=== PATIENT | female | born 1955 | race African-American/Black ===

== ENCOUNTER 2019-02-19 22:35 | Inpatient (IN) | payer OTHER ==
[~2019-02-19] VITALS: Ht 154.9 cm; Wt 119.0 kg
[~2019-02-19 22:35] MED LIST: ACETAMINOPHEN325 M1 PO; ADVAIR HFA 1112 UNIT INH; AMLODIPINE BESYL5 MG PO; AMLODIPINE-BEN1 EACH PO; AMOX TR-K CLV1 EAC4 PO; AUGMENTIN PO; AZOR 10-20 MG1 EACH PO; BENAZEPRIL HCL5 MG PO; CEFTIN 250 MG250 MG PO; CEFTIN500 MG PO; COLACE100 MG PO; COUMADIN 2.5MG2.5 M1 PO; DUONEB 2.5-0.5 M3 ML INH; FLONASE 0.05%50 MCG NASAL; HYDROCHLOROTH12.5 MG PO; HYDROCHLOROTHIA25 M1 PO; KEFLEX750 MG PO; LANSOPRAZOLE30 MG PO; LASIX 20 MG TAB20 MG PO; LASIX 40 MG TAB40 M1 PO; NAPROSYN500 MG PO; NIFEDIPINE ER30 M1 PO; NORCO 5-325 TA1 EACH PO; PREDNISONE; PREDNISONE 10 M10 M1; PREDNISONE 10 M10 M1 PO; PREDNISONE10 MG PO; PREVACID30 MG; SINGULAIR 10 MG10 M1 PO; SYMBICORT160 MCG/4. INH
[2019-02-19 22:44] VITALS: BP 107/50
[2019-02-19 23:31] LABS: BE(vivo) 3.2 mmol/L (-2 to +3); HCO3 30.3 mmol/L (22.0-26.0); PCO2 61.4 mmHg (35.0-45.0); PO2 58.9 mmHg (80.0-100.0); sO2 87.4 % (92.0-98.0)
[2019-02-19 23:32] LABS: pH 7.311 (7.360-7.450)
[2019-02-20] VITALS (8 sets, daily range): BP systolic 97–133; BP diastolic 49–86
[2019-02-20 00:50] LABS: HEMATOCRIT 28.1 % (37.0-47.0); HEMOGLOBIN 8.4 gm/dL (12.0-15.0); MCH 26.9 pg (26.0-34.0); MCHC 29.8 g/dL (28.0-37.0); MCV 90.3 fL (80.0-100.0); RBC 3.11 mil/uL (4.20-5.00); RDW 20.1 % (10.5-14.5); WBC 13.1 thou/uL (4.0-11.0)
[2019-02-20 00:55] LABS: CALCIUM 8.9 mg/dL (8.5-10.1); CREATININE 7.2 mg/dL (0.6-1.0)
[2019-02-20 01:00] LABS: POTASSIUM 6.1 mmol/L (3.5-5.1)
--- NOTE | 2019-02-20 08:11 | EKG ---
[address] [email or web address] [address] ELECTROCARDIOGRAM REPORT Name: JANA WILSON Room #: 170-1 ADM IN M.R.#: [id number] Admission: 02/20/19 Attend Phys: Pebbles Salmeron MD Discharge: Date of : 51 Report #: [id number] THIS REPORT FOR: //name// [facility] ED Test Date: 2019-02-19 Test Time: 22:46:34 Pat Name: JANA WILSON Department: Room: 170 Gender: F Public Relations: VÍCTOR : 1955 Requested By: Ham Farias Order Number: [id number] MD: Julien Solorio Measurements Intervals [place] Rate: 110 P: 25 WA: 135 QRS: 46 QRSD: 85 T: 13 QT: 313 QTc: 424 Interpretive Statements Sinus tachycardia Early R-wave progression Compared to ECG 11/11/2014 02:23:38 No significant change was found Electronically Signed On 02-20-2019 8:11:13 CDT by Julien Solorio [email or web address] <ELECTRONICALLY SIGNED> By: Julien Solorio MD, [facility] 02/20/19 0811 [id number] 45 Julien Solorio MD, FACC /EPI
--- NOTE | 2019-02-20 09:22 | NUR ---
PT. RECEIVING HEMODIALYSIS AT THIS TIME.
--- NOTE | 2019-02-20 10:06 | NUR ---
LIAISON PLANNER ARRIVED TO PROVIDE DIALYSIS TO PATIENT. ROOM ASSIGNED IN ICU. PT. TO RECEIVE HD IN ASSIGNED ROOM.
[2019-02-20 10:16] LABS: BE(vivo) 3.8 mmol/L (-2 to +3); HCO3 30.3 mmol/L (22.0-26.0); PCO2 57.5 mmHg (35.0-45.0); sO2 86.2 % (92.0-98.0)
[2019-02-20 10:17] LABS: PO2 55.1 mmHg (80.0-100.0)
[2019-02-20] MEDS ORDERED: ZYLOPRIM100 MG PO (11:42)
[2019-02-20] MEDS ORDERED: ASA81BEC PO (11:43)
[2019-02-20] MEDS ORDERED: RENVELA800 MG PO (11:43)
[2019-02-20] MEDS ORDERED: POLYETHYLENE GL17 GM PO (11:45)
[2019-02-20] MEDS ORDERED: LIPITOR 40 MG T40 M1 PO (11:45)
[2019-02-20] MEDS ORDERED: LOPRESSOR25 PO (11:46)
[2019-02-20] MEDS ORDERED: CALCITRIOL0.5 MCG PO (11:47)
--- NOTE | 2019-02-20 20:12 | NUR ---
PT ADMITTED TO ICU OVERFLOW CC TELE STATUS AT 1030. PT REPORTS THAT SHE HAS BEEN HAVING SEVERE SOA WITH MOVEMENT SINCE LAST NIGHT. CT CHEST PE PROTOCOL ORDERED BUT NO IV ACCESS ON ARRIVAL FROM ER. DIALYSIS STARTED ON ARRIVAL FROM ER AND COMPLETED THIS AFTERNOON. PT TO CT SCAN FOLLOWING. WHILE IN CT SCAN RIGHT AC #20 G INFILTRATED WITH CONTRAST DYE. ICE PACK APPLIED TO SITE. DR BURGOS NOTIFIED THAT UNABLE TO COMPLETE CT SCAN BC OF RIGHT ARM SWELLING POST INFILTRATE AND UNABLE TO USE LEFT ARM FOR IV PLACEMENT DUE TO AV FISTULA. HE PLANS TO RE EVAL NEED FOR CT IN AM AND HOLD OFF FOR TONIGHT. TO START ON SQ HEPARIN.
[2019-02-21 00:11] VITALS: BP 104/41
[2019-02-21 04:02] VITALS: BP 99/46
[2019-02-21 07:30] VITALS: BP 100/53
[2019-02-21 09:05] VITALS: BP 101/53
[2019-02-21 10:20] LABS: HEMATOCRIT 24.9 % (37.0-47.0); HEMOGLOBIN 7.5 gm/dL (12.0-15.0); MCH 27.2 pg (26.0-34.0); MCHC 29.9 g/dL (28.0-37.0); MCV 90.9 fL (80.0-100.0); RBC 2.74 mil/uL (4.20-5.00); RDW 20.2 % (10.5-14.5); WBC 11.8 thou/uL (4.0-11.0)
--- NOTE | 2019-02-21 11:32 | NUR ---
VASCULAR ACCESS NURSE CONSULTED TO ATTEMPT BLOOD DRAW AND PIV FOR CT. THIS PATIENT HAS A NEW LEFT ARM FISTUAL. RIGHT ARM IS THE ONLY OPTION. RECENT CONTRAST INFILTRATION NOTED TO MEDIAL RIGHT AC. VERY TENDER TO TOUCH. A PIV ATTEMPTED TO RIGHT LATERAL AC SUCCESSFUL BUT ONLY ABLE TO GET PARTIAL BLOOD DRAW FOR LABS. THIS PATIENT HAS A RIGHT CHEST DIALYSIS LINE, LEFT ARM NEW FISTULA.. REFUSING TO BE STUCK AGAIN AND ALSO REFUSING TO DICUSS CENTRAL LINE OPTION. THIS PATIENT IS NOT A CANIDATE FOR MIDLINE OR PICC OPTION DUE TO THE RENAL HISTORY AND THE NEED TO PRESERVE THE RIGHT UPPER ARM VESSELS FOR FUTURE FISTULAS PER HOSPITAL POLICY. FELIX [place]Y UPDATED
[2019-02-21 12:00] VITALS: BP 95/48
--- NOTE | 2019-02-21 12:30 | NUR ---
Pt transferred to room 204 via wheelchair. Report called to receiving nurse Marizol prior to transfer. Personal belongings packed by ANNA Matute (Clothes, cell phone, cell phone senior oracle dba) and pt has her glasses. Assisted to bedside chair and oriented to new room by receiving staff. O2 at 4 liters nasal cannula at time of the transfer.
--- NOTE | 2019-02-21 14:11 | NUR ---
CONSULT [id number] COMPLETED. Patient was just transferred to . She was comfortable and in good spirts. We did life review and discussed her phogn background. We concluded in prayer.
--- NOTE | 2019-02-21 18:20 | NUR ---
PT WAS TRANSFERRED FROM ICU OVERFLOW EARLIER TODAY, PT HAS BEEN TO [facility] SEVERAL TIMES WITH 1 ASSIST. PT EDUCATED EXTENSIVELY ON DIALYSIS DIET, FISTULA AND MEDICATIONS. PT VQ SCAN CAME BACK NEGATIVE AND PT UNDER THE IMPRESSION SHE WOULD BE ABLE TO GO HOME, PAGED DR BURGOS, HE STATES THE PT IS TO STAY TODAY, POSSIBLE DISCHARGE TOMORROW. PROGRESSING TOWARDS GOALS WELL.
[2019-02-21 20:06] VITALS: BP 97/48
[2019-02-22 01:00] VITALS: BP 106/56
[2019-02-22 02:05] LABS: HEPATITIS B SURFACE AG Negative (Negative)
[2019-02-22 04:34] VITALS: BP 103/54
--- NOTE | 2019-02-22 04:46 | NUR ---
ASSUMED PT CARE AT 1900. PT IS SITTING IN CHAIR. NO FAMILY AT BEDSIDE. DENIES ANY PAIN. PT IS ON OXYGEN. NO SIGN OF DISTRESS NOTED. ASSESSMENT COMPLETED AND DOCUMENTED. FALL PRECAUTION IN PLACE. SCHEDULED MEDS ADMINISTERED TO PT. PT TOLERATED PO INTAKE. NO SIGN OF DISTRESS NOTED. PT STARTED TO DESAT AFTER CIPAP WAS TAKEN OFF. PT WAS PLACED ON HIGH FLOW OXYGEN.
[2019-02-22 05:08] LABS: ABSOLUTE NEUTROPHILS 6.8 thou/uL (1.4-8.2); BASOPHILS 0.6 % (0.0-2.0); HEMATOCRIT 24.7 % (37.0-47.0); HEMOGLOBIN 7.5 gm/dL (12.0-15.0); LYMPHOCYTES 23.4 % (24.0-44.0); MCH 27.3 pg (26.0-34.0); MCHC 30.4 g/dL (28.0-37.0); MCV 89.9 fL (80.0-100.0); MONOCYTES 7.4 % (1.0-8.0); PLATELET COUNT 199 thou/uL (150-400); POLYS 67.6 % (36.0-66.0); RBC 2.75 mil/uL (4.20-5.00); RDW 20.6 % (10.5-14.5); WBC 10.1 thou/uL (4.0-11.0)
[2019-02-22 05:09] LABS: CALCIUM 8.9 mg/dL (8.5-10.1); CREATININE 7.2 mg/dL (0.6-1.0); POTASSIUM 4.5 mmol/L (3.5-5.1)
[2019-02-22] MEDS ORDERED: MIDODRINE HCL 55 M1 PO (08:21)
[2019-02-22] MEDS ORDERED: PEPCID20 MG PO (08:22)
[2019-02-22 09:22] VITALS: BP 104/44
--- NOTE | 2019-02-22 16:43 | NUR ---
PT CARE ASSUMED APPROX 0700. ASSESSMENT CHARTED. PT DENIES PAIN AND SOA. VSS. UP WITH 1 MOD ASSIST. PT WAS TO DISCHARGE BUT AFTER CONTACTING OUR ELEMENTARY SCHOOL COUNSELOR TO LEARN THAT RECEIVING FACILITY NEEDS TO ACCEPT PT THROUGH ADMISSION DEPT. THEIR ADMISSIONS DEPT IS CLOSED ON SUNDAYS SO POC UPDATED TO DISCHARGE PT TOMORROW. DR BURGOS IS AWARE. HE REQUESTED THAT PT BE DIALYZED FIRST TOMORROW MORNING. THIS NURSE CONTACTED LAP MACHINE OPERATOR HD NURSE TO MAKE REQUEST KNOWN. FAMILY AND PT GIVEN POC AND CLINICAL UPDATES THIS SHIFT. ALL DENY QUESTIONS AND CONCERNS REGARDING POC. PT TO CHAIR MOST OF SHIFT. NO DISTRESS NOTED.
[2019-02-22 17:34] VITALS: BP 97/51
[2019-02-22 19:27] VITALS: BP 106/55
[2019-02-23 04:08] VITALS: BP 102/46
--- NOTE | 2019-02-23 08:19 | NUR ---
ASSESSMENTS CHARTED, MEDS GIVEN CHARTED. HAD LONG DISCUSSION OF DIET RESTRICTIONS INVOLVED IN A RENAL DIET. PATIENT HAS A GOOD BEGINNING ON UNDERSTANDING. ON 4 LITERS OXYGEN DURNING SHIFT. USED CPAP DURING NIGHT. PATIENT PLANNING ON GETTING DISCHARGED TODAY AFTER DIALYSIS.
[2019-02-23 12:31] VITALS: BP 122/64
[2019-02-23 12:32] VITALS: BP 134/64
--- NOTE | 2019-02-23 13:22 | NUR ---
PT DISCHARGING TODAY TO [facility] FAXED DC ORDERS/SUMMARY TO FACILITY SPOKE WITH MALTAHI IN ADM SHE RECEIVED DC ORDERS AND ARRANGED TRANSPORT BY [facility] FOR [phone]. NOTIFIED PT'S FAMILY (ROBERT) OF DC AND TIME OF TRANSPORT. UNIT NOTIFIED AND CHART COPY PER US. RN TO CALL REPORT TO [phone].
--- NOTE | 2019-02-23 15:20 | NUR ---
ASSUMMED PT CARE AT APPROXIMATELY 0700. PT A&O X4. FALL PRECAUTIONS IN PLACE. ASSESSMENT CHARTED. PT DENIES HAVING SOB. PT DENIES HAVING CHEST PAIN. PT DENIES ACUTE PAIN. PT STATED SHE WAS NAUSEATED. PT RECEIVED ANTI-EMETIC. PT STATED HER NAUSEA WAS RELEIVED. PT RECEIVED DIALYSIS TODAY. COBOL APPLICATION DEVELOPER STATED THEY REMOVED 1 L. Q2 TURNS. PT DISCHARGING BACK TO [facility]. RN AT [facility] CALLED AND GIVEN VERBAL REPORT. RN DENIED HAVING FURTHER QUESTIONS. [facility] TRANSPORT TOOK PT OFF UNIT AT APPROXIMATELY 1515. IV'S DC. TELE DC. PT DENIES HAVING FURTHER CONCERNS. BELONGINGS SENT C PT. PT REPORT PACKET SENT C PT.
--- NOTE | 2019-02-24 08:39 | HC ---
[facility] [place] [address] CONSULTATION Name: JANA WILSON Room #: 204-P [facility] IN M.R.#: [id number] Admission: 02/20/19 Attend Phys: Pebbles Salmeron MD Discharge: 02/23/19 Date of : 51 Report #: [id number] THIS REPORT FOR: //name// CC: Pebbles Salmeron DATE OF SERVICE: 02/20/2019 REASON FOR CONSULTATION: End-stage renal disease. REASON FOR PRESENTATION: Shortness of breath. HISTORY OF PRESENT ILLNESS: This is a 63-year-old who resides in a nursing facility. She is known to have severe COPD, obstructive sleep apnea. She tells me that she was at [facility] back in December of this year. She had kidney failure and was initiated on dialysis. She does not recall the cause for her renal disease. She has longstanding hypertension. She is also known to have pulmonary hypertension with coronary artery disease. She is not really sure about her heart condition and whether she had CHF or not. Last cardiac echo was done here in our facility back in 2014 and that showed an ejection fraction of 55-60%. She had mild aortic stenosis at that time. She also had mild mitral regurgitation. She had some diastolic heart failure. Pulmonary artery pressure back then was 52; however, this was way back from 2014. She had a fall at her facility yesterday and was evaluated earlier in the day at [facility] and was sent back to her facility. She presented with shortness of breath and was found to be hyperkalemic. She is supposed to be dialyzing today. She has mild leukocytosis on her presentation with a mildly elevated troponin. She tells me that she dialyzes 3-1/2 hours and had some issues with the fluid removal. PAST MEDICAL HISTORY: 1. Hypertension. 2. Morbid obesity. 3. Obstructive sleep apnea. 4. Pulmonary hypertension. 5. Coronary artery disease. 6. Hypotension. 7. Leukocytosis. 8. Hyperkalemia. PAST SURGICAL HISTORY: 1. Hysterectomy. 2. Tubal ligation. 3. PE back in 2009. 4. COPD. 5. Obstructive sleep apnea. 6. Recent left AV fistula. [facility] [address] [place] [address] CONSULTATION Name: JANA WILSON Room #: 204-P [facility] IN ..#: [id number] Admission: 02/20/19 Attend Phys: Pebbles Salmeron MD Discharge: 02/23/19 Date of : 51 Report #: [id number] 7. Right IJ tunneled catheter placement. MEDICATIONS: 1. Hydrochlorothiazide. 2. Benazepril. 3. Nifedipine. 4. DuoNeb. 5. Fluticasone. ALLERGIES: CIPRO, CODEINE, ERYTHROMYCIN. SOCIAL HISTORY: Denies any nursing facility. Denies drug or alcohol abuse. She used to work for the [employer] service. REVIEW OF SYSTEMS: GENERAL: Significant for weakness, but no fever or chills. CARDIOVASCULAR: No chest pain or palpitations. PULMONARY: As per the history of present illness. GASTROINTESTINAL: No nausea or vomiting. MUSCULOSKELETAL: Significant back and neck pain post fall. SKIN: No rash or ulcerations. NEUROLOGICAL: Significant for weakness. PHYSICAL EXAMINATION: GENERAL: She is alert, oriented, in no apparent distress. VITAL SIGNS: Blood pressure is 98/55. HEAD AND NECK: No jugular venous distention. Right IJ catheter present. CHEST: Minimal crackles. CARDIOVASCULAR: Distant with no rub detected. ABDOMEN: Soft, nontender. LOWER EXTREMITIES: +1 edema. IMPRESSION AND PLAN: 1. End-stage renal disease. 2. Hypotension. 3. Leukocytosis. 4. Chronic obstructive pulmonary disease. 5. Right-sided heart failure. 6. Obstructive sleep apnea. 7. Hyperkalemia. 8. We will arrange for the patient to have her usual hemodialysis. Hypotension seems to be an issue and we will start the patient on midodrine. She does have significant fluid overload because of failure to obtain significant ultrafiltration given her hypotension and [place] [address] CONSULTATION Name: JANA WILSON Room #: 204-P [facility] IN M.R.#: [id number] Admission: 02/20/19 Attend Phys: Pebbles Salmeron MD Discharge: 02/23/19 Date of : 51 Report #: [id number] 9. Management of her hyperkalemia with a low K bath. 10. Management of her other comorbid conditions per the primary team. <ELECTRONICALLY SIGNED> By: Urvashi Cha MD 02/24/1939 4 46 Urvashi Cha MD /nt
== END 2019-02-23 15:14 | DRG 189 ==
LOC: ER 22:35 → 2N 02-20 01:31 → EROBS 02-20 01:31 → ICU 02-20 10:09 → 2N 02-21 12:36
PROVIDERS: Emergency Medicine; Hospitalist; Nurse Practitioner Adult Health; ADMIT Internal Medicine
PROC: 5A09357 Assistance with Respiratory Ventilation, Less than 24 Consecutive Hours, Continuous Positive Airway Pressure (ICD-10-PCS; principal; 2019-02-20)
PROC: 5A09357 Assistance with Respiratory Ventilation, Less than 24 Consecutive Hours, Continuous Positive Airway Pressure (ICD-10-PCS; 2019-02-22)
DX: J96.01 Acute respiratory failure with hypoxia (principal); N18.6 End stage renal disease; I13.2 Hypertensive heart and chronic kidney disease with heart failure and with stage 5 chronic kidney disease, or end stage renal disease; Z68.42 Body mass index [BMI] 45.0-49.9, adult; E87.5 Hyperkalemia; I27.20 Pulmonary hypertension, unspecified; J44.9 Chronic obstructive pulmonary disease, unspecified; I95.9 Hypotension, unspecified; I27.81 Cor pulmonale (chronic); I50.810 Right heart failure, unspecified; D63.8 Anemia in other chronic diseases classified elsewhere; D72.829 Elevated white blood cell count, unspecified; E66.01 Morbid (severe) obesity due to excess calories; I25.10 Atherosclerotic heart disease of native coronary artery without angina pectoris; G47.33 Obstructive sleep apnea (adult) (pediatric); K21.9 Gastro-esophageal reflux disease without esophagitis; Z99.2 Dependence on renal dialysis; Z86.711 Personal history of pulmonary embolism; Z88.5 Allergy status to narcotic agent; Z88.1 Allergy status to other antibiotic agents; Z90.710 Acquired absence of both cervix and uterus
CPT/HCPCS: 10081; 10203; 32100